=== PATIENT | female | born 1980 | race Two or more races ===

== ENCOUNTER 2017-07-14 16:40 | Emergency (ER) | payer OTHER ==
[~2017-07-14] VITALS: Ht 160 cm; Wt 86.2 kg
[2017-07-14] MEDS ORDERED: HYDROCODONE/APAP 5/325MG 1 EACH TABLET ONE (16:53)
--- NOTE | 2017-07-14 16:54 | NUR ---
[facility] FAMILY TO ER - LEFT KNEE PAIN AFTER A FALL
--- NOTE | 2017-07-14 16:56 | NUR ---
PT MEDICATED ORDERED.
[2017-07-14] MEDS ORDERED: HYDROCODONE/APAP 5/325MG 1 EACH TABLET PO ONE (17:00)
--- NOTE | 2017-07-14 17:43 | NUR ---
Patient discharged to home in stable condition. Written and verbal after care instructions given. Patient verbalizes understanding of instruction.
--- NOTE | 2017-07-14 17:43 | NUR ---
[facility] AT FOR KNEE IMMOBILIZER AND CRUTCHES.
[2017-07-14 17:47] VITALS: BP 144/81
== END 2017-07-14 17:47 | disposition home or self-care (01) ==
LOC: ER 16:41
DX: S80.02XA Contusion of left knee, initial encounter (principal); X58.XXXA Exposure to other specified factors, initial encounter; Y93.89 Activity, other specified; Y92.89 Other specified places as the place of occurrence of the external cause; Y99.8 Other external cause status
CPT/HCPCS: 29505; 73564; 99284; A4606 ×2; Z7610 ×2